=== PATIENT | female | born 1995 | race Caucasian/White ===

== ENCOUNTER → 2020-04-19 15:30 | Outpatient (BNVA) | payer MEDICAID, SELFPAY | PROVIDERS: Family Provider Nurse Practitioner Family; PCP Nurse Practitioner Family; Visit Provider Nurse Practitioner Family | DX: R04.0 Epistaxis (principal); R03.0 Elevated blood-pressure reading, without diagnosis of hypertension | CPT/HCPCS: 80053; 81000; 85025; 87491; 87591; 87661 ==

== ENCOUNTER 2020-07-11 20:55 | Emergency (ER) | payer MEDICAID, SELFPAY ==
[2020-07-11] VITALS (14 sets, daily range): BP systolic 118–139; BP diastolic 70–82; PULSE 60–105; RESP 18–28; TEMP 36.5; O2SAT 97–100; BMI 46.5
--- NOTE | 2020-07-11 | US_ITS ---
Procedure was edited; report was originally signed on 07/12/20818 WS: [id number] EARLY OBSTETRICAL ULTRASOUND (<14 WEEKS). HISTORY: lower abd pain COMPARISON: None available. Quality of this examination is significantly limited by lack of bladder distention and no transvaginal imaging. Single intrauterine gestational sac is identified. Cardiac activity at 126 BPM. [place]-rump length measures 0.8 cm which corresponds to a gestation of 6w5d. Normal-appearing yolk sac and amnion demonstrated. No subchorionic hemorrhage. Neither ovary is definitely identified. No free fluid. [facility] [id number] IMPRESSION: 1. Single intrauterine gestation of 6 weeks 5 days with an EDC of 02/04/2021. 2. This is an extremely limited ultrasound of the gravid uterus. Recommend fol low-up transvaginal imaging.
--- NOTE | 2020-07-11 21:02 | ECG_ITS ---
[facility] Test Date: 2020-07-11 Pat Name: Brit Gunderson Department: Room: Gender: Female Ab Initio Etl Developer: : 1995 Requested By: Darrell Young Order Number: [id number] Prudence MD: JOSE ELIAS HUNT Measurements Intervals [place] Rate: 91 P: 39 FL: 154 QRS: 24 QRSD: 89 T: 33 QT: 347 QTc: 428 Interpretive Statements SINUS RHYTHM Compared to ECG 04/28/2019 18:17:54 Sinus tachycardia no longer present Electronically Signed On 07-12-2020 18:39:15 RIG SITE ENGINEER by JOSE ELIAS HUNT [id number] f
--- NOTE | 2020-07-11 21:13 | XR_ITS ---
WS: [id number] XR chest 1V portable [id number] REASON FOR EXAM: CP, FINDINGS: The chest is unchanged compared to 04/28/2019. The heart and mediastinum are within normal limits. No active pulmonary parenchymal or pleural disease. Bony thorax is intact. XR/XR chest 1V portable [id number] IMPRESSION: No acute abnormality.
--- NOTE | 2020-07-11 23:30 | US_ITS ---
WS: [id number] EARLY OBSTETRICAL ULTRASOUND (<14 WEEKS). HISTORY: lower abd pain COMPARISON: None available. Quality of this examination is significantly limited by lack of bladder distention and no transvagina l imaging. Single intrauterine gestational sac is identified. Cardiac activity at 126 BPM. [place]-rump length truong sures 0.8 cm which corresponds to a gestation of 6w5d. Normal-appearing yolk sac and amnion demonstra shayne. No subchorionic hemorrhage. Neither ovary is definitely identified. No free fluid.
[2020-07-11 23:31] LABS: Basophils % 0.3 %; Eosinophils # 0.5 10^3/uL (0.0-0.8); Eosinophils % 3.8 %; Hematocrit 40.5 % (37.0-47.0); Hemoglobin 13.3 g/dL (11.5-15.3); Lymphocytes # 2.4 10^3/uL (0.8-4.8); Lymphocytes % 19.7 %; Mean Corpuscular HGB Conc 32.8 g/dL (30.0-36.0); Mean Corpuscular Hemoglobin 26.9 pg (28.0-34.0); Mean Platelet Volume 12.3 fL (7.4-10.4); Monocytes # 0.8 10^3/uL (0.2-0.9); Monocytes % 6.3 %; Neutrophils # 8.41 10^3/uL (1.8-7.7); Neutrophils % 69.7 %; Nucleated Red Blood Cells % 0 %; Platelet Count 164 10^3/cmm (130-400); Red Blood Count 4.94 10^6/uL (4.1-5.3); White Blood Count 12.1 10^3/uL (4.0-10.0)
[2020-07-11 23:48] LABS: Troponin(5th) Baseline 6 ng/L (0-10)
[2020-07-11 23:58] LABS: Alanine Aminotransferase 8 U/L (0-33); Albumin Level 4.1 g/dL (3.5-5.2); Alkaline Phosphatase 72 IU/L (35-105); Anion Gap 16.8 (5-19); Aspartate Amino Transferase 11 U/L (0-32); Blood Urea Nitrogen 14 mg/dL (6-20); Calcium 9.2 mg/dL (8.5-10.5); Carbon Dioxide 22 mmol/L (22-29); Chloride 104 mmol/L (98-107); Globulin 2.7 g/dL (1.3-4.6); Glomerular Filtration Rate 103.7 mL/min (90-130); Glucose 107 mg/dL (65-115); NT Pro B Type Natriuretic Pept 51 pg/mL (0-125); Osmolality Calculated 289 mOsm/kg (285-295); Potassium 3.8 mmol/L (3.5-5.1); Sodium 139 mmol/L (136-145); Total Bilirubin 0.4 mg/dL (0.15-1.2); Total Protein 6.8 g/dL (6.6-8.7)
[2020-07-12] VITALS: BP 127/81; PULSE 94; RESP 18; O2SAT 96
--- NOTE | 2020-07-12 00:11 | PC.NURSE ---
Ultrasound at bedside
--- NOTE | 2020-07-12 00:17 | W.ED.CHESTPA ---
HPI - Chest Pain General: Chief Complaint: Chest Pain Stated Complaint: cp, dizziness, headache, 6 weeks preg Time Seen by Provider: 07/11/20 21:13 Source: patient Mode of arrival: ambulatory Limitations: no limitations History of Present Illness: HPI narrative: Patient was laying in bed when she developed chest pain. Chest pain is nonradiating. She had associated abdominal pain in her lower abdomen, dizziness, headache. The patient is about 6 weeks and she is currently on antibiotics for UTI. MD complaint: chest pain Onset (ago): hour(s) (1) Timing of current episode: constant Prior episodes: No Onset: during rest Pain location: left chest Pain radiation: none Severity: moderate Quality: dull Relieving factors: nothing Exacerbating factors: nothing Associated symptoms: Reports abdominal pain; Deny diaphoresis, dyspnea, fever(s), leg edema, nausea, palpitations, sense of impending doom, syncope or vomiting Treatment prior to arrival: none Review of Systems General: Reports: 10 or more systems reviewed and unremarkable except in HPI and below Const: Denies: fever(s) or diaphoresis Eyes: Denies: change in vision or blurry vision ENMT: Denies: throat pain, enlarged tonsils, odynophagia, hoarseness, mouth pain or swelling of lips/tongue Card: Denies: palpitations or syncope Resp: Denies: dyspnea GI: Reports: abdominal pain; Denies: nausea or vomiting : Denies: flank pain, difficulty voiding, dysuria, urinary frequency, urinary urgency or urinary hesitancy Musc: Denies: neck pain, back pain or extremity swelling Skin/Breast: Denies: rash, pruritus or erythema Neuro: Denies: headache(s), numbness in extremities or weakness in extremities Endo: Denies: polyuria, polydipsia or tired all the time PFSH ED PFSH: Surgical History Hx of right knee surgery Family History Father Diabetes Hypertension Mother Hypertension Social History Smoking and tobacco status: former smoker Second hand smoke exposure: Yes Smoking risk assessment/counseling performed?: No Alcohol intake: never Desire information about alcohol rehabilitation?: No Counseling given: No Desire information about substance/drug rehabilitation?: No Counseling given: No Adopted: No Caregiver/support person: No Lives independently: Yes Household members: spouse Housing: House Marital status: Number of children: 0 Highest education level completed: 8th Grade service: No History of recent travel: No Physical Exam Const: COMMON NORMALS: no acute distress, average body habitus, patient oriented x3, no limitations, healthy appearing, alert and well nourished HENMT: COMMON NORMALS: normocephalic, atraumatic and moist oral mucous membranes HEAD & SCALP: normocephalic and atraumatic Neck/C-Spine: COMMON NORMALS: no meningeal signs and no JVD Chest: COMMONS NORMALS: normal inspection of the chest and normal palpation of entire chest wall Resp: COMMON NORMALS: normal respiratory effort, No retractions, No use of accessory muscles, clear to auscultation bilaterally and percussion normal AUSCULTATION: clear to auscultation bilaterally PERCUSSION: percussion normal Cardio: COMMON NORMALS: no JVD, regular rate, regular rhythm, S1 normal heart sound present, S2 normal heart sound present, No gallops present (Cardio), No clicks present (Cardio), No murmurs present (Cardio), No rub (Cardio) and Peripheral pulses 2+ throughout RATE: regular rate RHYTHM: regular rhythm HEART SOUNDS: S1 normal heart sound present and S2 normal heart sound present PERIPHERAL PULSES: Peripheral pulses 2+ throughout GI: COMMON NORMALS: Normal to inspection, nondistended, normoactive bowel sounds present, Soft to palpation, non-tender, No hepatosplenomegaly present, no masses and no bruits PALPATION: Yes Soft to palpation and Yes No hepatosplenomegaly present Extremity: COMMON NORMALS: normal to inspection, full ROM, capillary refill normal, no calf tenderness and no pedal edema Neuro: COMMON NORMALS: patient oriented x3 SENSORIUM/ORIENTATION: Yes alert MENINGEAL SIGNS: Yes no meningeal signs Skin: COMMON NORMALS: no rashes or lesions noted, no wounds, turgor normal, no jaundice, no petechiae and no mottling GENERAL SKIN EXAM: no rashes or lesions noted and turgor normal Course Reevaluation(s): Reevaluation #1: Discussed her lab and imaging findings with her. Negative for acute findings. Ultrasound shows a 6-week and that appears healthy with no complications. Heart score is one which means she has a 1.7% risk of a MACE in the next 6 weeks. She will be discharged home with no new orders. She voiced understanding and is in agreement with the plan Time: 00:18 Vital Signs: Vital signs: Vital Signs Temperature 97.7 F 07/11/20 21:07 Pulse Rate 18 L 07/12/20 00:24 Respiratory Rate 68 H 07/12/20 00:24 Blood Pressure 120/74 07/12/20 00:24 Pulse Oximetry 99 07/12/20 00:24 MDM - Chest Pain MDM Narrative: Medical decision making narrative: 24-year-old morbidly obese female who is 6 weeks and presents with chest pain. Chest pain is likely to be noncardiac in origin. Evaluation otherwise was unremarkable and she is discharged home with the new orders. Medical Records: Attestation: I reviewed the patient's medical records. Lab Data: Attestation: I reviewed the patient's lab results. Labs: Lab Results 07/11/20 07/11/20 07/11/20 Range/Units 22:02 22:02 22:02 WBC 12.1 H (4.0-10.0) 10^3/ uL RBC 4.94 (4.1-5.3) 10^6/u L Hgb 13.3 (11.5-15.3) g/dL Hct 40.5 (37.0-47.0) % MCV 82.0 (81-99) fL MCH 26.9 L (28.0-34.0) pg MCHC 32.8 (30.0-36.0) g/dL RDW 13.0 (12.1-15.1) % Plt Count 164 (130-400) 10^3/c mm MPV 12.3 H (7.4-10.4) fL Neut % (Auto) 69.7 % Lymph % (Auto) 19.7 % [place] % (Auto) 6.3 % Eos % (Auto) 3.8 % Baso % (Auto) 0.3 % Neut # (Auto) 8.41 H (1.8-7.7) 10^3/u L Lymph # (Auto) 2.4 (0.8-4.8) 10^3/u L [place] # (Auto) 0.8 (0.2-0.9) 10^3/u L Eos # (Auto) 0.5 (0.0-0.8) 10^3/u L Baso # (Auto) 0.0 (0.0-0.1) 10^3/u L Nucleated RBC % (a uto) 0 % Nucleated RBCs # 0.0 /100WBC Sodium 139 (136-145) mmol/L Potassium 3.8 (3.5-5.1) mmol/L Chloride 104 (98-107) mmol/L Carbon Dioxide 22 (22-29) mmol/L Anion Gap 16.8 (5-19) BUN 14 (6-20) mg/dL Creatinine 0.7 (0.5-0.9) mg/dL GFR Calculation 103.7 (90-130) mL/min Glucose 107 (65-115) mg/dL Calculated Osmolal ity 289 (285-295) mOsm/k g Calcium 9.2 (8.5-10.5) mg/dL Total Bilirubin 0.4 (0.15-1.2) mg/dL AST 11 (0-32) U/L ALT 8 (0-33) U/L Alkaline Phosphata se 72 (35-105) IU/L Troponin T Baselin e 6 (0-10) ng/L NT-Pro-B Natriuret Pep 51 (0-125) pg/mL Total Protein 6.8 (6.6-8.7) g/dL Albumin 4.1 (3.5-5.2) g/dL Globulin 2.7 (1.3-4.6) g/dL Imaging Data^: CXR: Attestation: I personally reviewed and interpreted this imaging study as follows: My impression: No acute findings EKG Data^: EKG 1: Attestation: I personally reviewed and interpreted this EKG as follows: EKG interpretation date: 07/11/20 EKG interpretation time: 21:21 Prior EKG tracings: not available for review Interpretation: Normal sinus rhythm. Heart rate [address] changes. Normal axis. Next Discharge Plan Discharge Patient Disposition: Home Clinical Impression: Chest pain, non-cardiac, Early stage of Condition: Stable Prescriptions: Continued sodium chloride [Saline Nasal Mist] 0.65 % aerosol,spray 2 spray INTRANASAL QID PRN (Reason: dry nasal passages) 30 Days Qty: 60 RF: 2 Discontinued ibuprofen [Advil] 200 mg tablet 200 mg PO Q6H PRNRF: 0 Discharge Orders: Discharge ED (Routine); Ordered 07/12/20 Ordered By: Pineda Bass Referrals: Flora Hui FNP-C [Primary Care Provider] - 1-3 days Discharge Diet: Usual diet Discharge Activity: Resume usual activity Patient Instructions: Abdominal Pain in (ED), Noncardiac Chest Pain (ED) Activity Restrictions/Additional Instructions: Return for any new or worsening symptoms. Follow-up with your primary care provider within 3 days. Follow-up with your timber selector as soon as you can get in. Coding Level of Care Code ED Video Recorder Mechanic for Korey Escobedo
[2020-07-12 00:24] VITALS: BP 120/74; PULSE 18; RESP 68; O2SAT 99
== END 2020-07-12 00:25 | disposition home or self-care (01) ==
PROVIDERS: Emergency Provider Family Medicine; PCP Nurse Practitioner Family
DX: O26.891 Other specified pregnancy related conditions, first trimester (principal); R07.89 Other chest pain; Z3A.01 Less than 8 weeks gestation of pregnancy; Z77.22 Contact with and (suspected) exposure to environmental tobacco smoke (acute) (chronic)
CPT/HCPCS: 12345; 71045; 76801; 76815; 80053; 83880; 84484; 85025; 93005; 99282; 99283

== ENCOUNTER 2020-07-26 15:41 | Emergency (ER) | payer MEDICAID, SELFPAY ==
[2020-07-26 16:26] VITALS: BP 126/79; PULSE 90; RESP 14; TEMP 36.5; O2SAT 99; BMI 44.9
--- NOTE | 2020-07-26 17:05 | XRR_ITS ---
PROCEDURE INFORMATION: Exam: XR Chest, 1 View Exam date and time: 07/26/2020 5:12 PM Age: 24 years old Clinical indication: Patient HX: Chest pain, lower abd pain x 2 days; Additional info: Cp TECHNIQUE: Imaging protocol: XR of the chest Views: 1 view. COMPARISON: CR XR chest 1V portable [id number] 07/11/2020 9:38 PM FINDINGS: Lungs: Unremarkable. No consolidation. Pleural space: Unremarkable. No pleural effusion. No pneumothorax. Heart/Mediastinum: Unremarkable. No cardiomegaly. Bones/joints: Unremarkable. XR/XR chest 1V portable [id number] IMPRESSION: No acute findings.
--- NOTE | 2020-07-26 17:06 | ECG_ITS ---
[facility] Test Date: 2020-07-26 Pat Name: Brit Gunderson Department: Room: Gender: Female Under Presser: : 1995 Requested By: Jose D Reyes Order Number: [id number] Prudence MD: Teagan Lion M.D. Measurements Intervals [place] Rate: 89 P: 11 KS: 147 QRS: 23 QRSD: 91 T: 25 QT: 360 QTc: 439 Interpretive Statements SINUS RHYTHM Compared to ECG 07/11/2020 21:21:58 No significant changes Electronically Signed On 07-26-2020 20:08:31 COAL INSPECTOR by Teagan Lion M.D. [id number]
[2020-07-26 20:58] VITALS: BP 149/90; PULSE 90; RESP 16; O2SAT 100
[2020-07-26] MEDS: diphenhydrAMINE 50 mg/mL SDV 1mL IVP (21:08)
[2020-07-26 21:09] LABS: Basophils % 0.4 %; Eosinophils # 0.4 10^3/uL (0.0-0.8); Eosinophils % 3.4 %; Hematocrit 40.4 % (37.0-47.0); Hemoglobin 13.6 g/dL (11.5-15.3); Lymphocytes # 2.3 10^3/uL (0.8-4.8); Lymphocytes % 22.5 %; Mean Corpuscular HGB Conc 33.7 g/dL (30.0-36.0); Mean Corpuscular Hemoglobin 27.7 pg (28.0-34.0); Mean Corpuscular Volume 82.3 fL (81-99); Monocytes # 0.5 10^3/uL (0.2-0.9); Neutrophils # 6.95 10^3/uL (1.8-7.7); Neutrophils % 68.5 %; Nucleated Red Blood Cells % 0 %; Platelet Count 340 10^3/cmm (130-400); Red Blood Count 4.91 10^6/uL (4.1-5.3); Red Cell Distribution Width 12.7 % (12.1-15.1); White Blood Count 10.2 10^3/uL (4.0-10.0)
[2020-07-26] MEDS: metoclopramide 5 mg/mL SDV 2 mL 10 MG IVP (21:09)
--- NOTE | 2020-07-26 21:16 | ED_ITS ---
HPI - General Adult General: Chief complaint: General Medical Stated complaint: 8 WKS , CP Time Seen by Provider: 07/26/20 20:40 Source: patient Mode of arrival: ambulatory Limitations: no limitations History of Present Illness: HPI narrative: 24-year-old female who is currently 8 weeks states that she has been having some chest pain along with abdominal pain nausea vomiting over the last 3 to 4 days. She states this is her first . States her pain is a 3 out of 10 and denies any fever. She denies any dysuria. She states she does have pain down her pelvis as well but denies any vaginal discharge or bleeding. Denies any worsening improving factors. Associated symptoms: Deny chest pain, dyspnea, headache(s) or rash Review of Systems Const: Denies: fever(s), chills, body aches or change in appetite Eyes: Denies: blurry vision or eye discomfort ENMT: Denies: throat pain or dental pain Card: Denies: chest pain Resp: Denies: dyspnea GI: Reports: abdominal pain : Denies: dysuria Musc: Denies: neck pain or back pain Skin/Breast: Denies: rash Neuro: Denies: headache(s) Psych: Denies: depression Atul/Lymph: Denies: easy bruising All/Imm: Denies: urticaria PFSH ED PFSH: Surgical History Hx of right knee surgery Family History Father Diabetes Hypertension Mother Hypertension Social History Smoking and tobacco status: former smoker Second hand smoke exposure: Yes Smoking risk assessment/counseling performed?: No Alcohol intake: never Desire information about alcohol rehabilitation?: No Counseling given: No Desire information about substance/drug rehabilitation?: No Counseling given: No Adopted: No Caregiver/support person: No Lives independently: Yes Household members: spouse Housing: House Marital status: Number of children: 0 Highest education level completed: 8th Grade service: No History of recent travel: No Female Reproductive History: Date of last menstrual period: 05/24/20 Physical Exam Const: COMMON NORMALS: no acute distress, patient oriented x3 and healthy appearing HENMT: COMMON NORMALS: normocephalic and atraumatic HEAD & SCALP: normocephalic and atraumatic Eye: COMMON NORMALS: Equal, round and reactive pupils present and EOMs intact bilaterally PUPIL: Yes Equal, round and reactive pupils present Neck/C-Spine: COMMON NORMALS: full ROM and supple Chest: COMMONS NORMALS: normal inspection of the chest and normal palpation of entire chest wall Resp: COMMON NORMALS: normal respiratory effort, No retractions, No use of accessory muscles and clear to auscultation bilaterally AUSCULTATION: clear to auscultation bilaterally Cardio: COMMON NORMALS: regular rate, regular rhythm and No murmurs present (Cardio) RATE: regular rate RHYTHM: regular rhythm GI: COMMON NORMALS: Normal to inspection, nondistended, normoactive bowel sounds present and no masses OTHER: No tenderness over McBurney's Extremity: COMMON NORMALS: normal to inspection and full ROM Neuro: COMMON NORMALS: patient oriented x3, moves all extremities and no focal motor deficits Psych: COMMON NORMALS: mental status grossly normal, Normal thought process present and cooperative THOUGHT PROCESS: Normal thought process present Skin: COMMON NORMALS: no rashes or lesions noted and no wounds GENERAL SKIN EXAM: no rashes or lesions noted Course Vital Signs: Vital signs: Vital Signs Temperature 97.7 F 07/26/20 16:26 Pulse Rate 80 07/26/20 21:48 Respiratory Rate 16 07/26/20 20:58 Blood Pressure 135/91 07/26/20 21:48 Pulse Oximetry 100 07/26/20 21:48 MDM - General Adult MDM Narrative: Medical decision making narrative: Patient presents here with abdominal pain and likely from a acute cystitis. Patient's abdominal exam here is benign and she has no signs of appendicitis. Her white count here is normal as well. She feels improved after the Reglan. She is stable for discharge and she is to follow-up with OB and return if worsening. Bedside ultrasound showed an IUP consistent with dates with heart rate of 152. Lab Data: Labs: Lab Results 07/26/20 07/26/20 07/26/20 Range/Units 20:20 20:50 20:50 WBC 10.2 H (4.0-10.0) 10^3/ uL RBC 4.91 (4.1-5.3) 10^6/u L Hgb 13.6 (11.5-15.3) g/dL Hct 40.4 (37.0-47.0) % MCV 82.3 (81-99) fL MCH 27.7 L (28.0-34.0) pg MCHC 33.7 (30.0-36.0) g/dL RDW 12.7 (12.1-15.1) % Plt Count 340 (130-400) 10^3/c mm MPV 11.0 H (7.4-10.4) fL Neut % (Auto) 68.5 % Lymph % (Auto) 22.5 % [place] % (Auto) 5.0 % Eos % (Auto) 3.4 % Baso % (Auto) 0.4 % Neut # (Auto) 6.95 (1.8-7.7) 10^3/u L Lymph # (Auto) 2.3 (0.8-4.8) 10^3/u L [place] # (Auto) 0.5 (0.2-0.9) 10^3/u L Eos # (Auto) 0.4 (0.0-0.8) 10^3/u L Baso # (Auto) 0.0 (0.0-0.1) 10^3/u L Nucleated RBC % (a uto) 0 % Nucleated RBCs # 0.0 /100WBC Sodium 137 (136-145) mmol/L Potassium 3.2 L (3.5-5.1) mmol/L Chloride 102 (98-107) mmol/L Carbon Dioxide 23 (22-29) mmol/L Anion Gap 15.2 (5-19) BUN 5 L (6-20) mg/dL Creatinine 0.4 L (0.5-0.9) mg/dL GFR Calculation 197.8 H (90-130) mL/min Glucose 97 (65-115) mg/dL Calculated Osmolal ity 281 L (285-295) mOsm/k g Calcium 9.8 (8.5-10.5) mg/dL Total Bilirubin 0.4 (0.15-1.2) mg/dL AST 12 (0-32) U/L ALT 12 (0-33) U/L Alkaline Phosphata se 75 (35-105) IU/L Total Protein 7.7 (6.6-8.7) g/dL Albumin 4.3 (3.5-5.2) g/dL Globulin 3.4 (1.3-4.6) g/dL Lipase 26 (13-60) U/L Urine Color Yellow (Yellow) Urine Appearance Sl hazy (CLEAR) Urine pH 6 (5-7) Ur Specific Gravit y 1.020 (1.005-1.030) Urine Protein Neg (Negative) Urine Glucose (UA) Norm (Normal) Urine Ketones Negative (Negative) Urine Blood Neg (Negative) Urine Nitrate Negative (Negative) Urine Bilirubin Neg (Negative) Urine Urobilinogen Norm (Negative) mg/dL Ur Leukocyte Karissa ase Trace H (Negative) Urine RBC 0-4 H (0-2) /hpf Urine WBC 10-15 H (0-5) /hpf Ur Squamous Epith Cells 0-4 H (0-5) /hpf Amorphous Sediment Not Reportable Urine Bacteria 1+ H (NONE) /hpf Discharge Plan Discharge Patient Disposition: Home Clinical Impression: Abdominal pain affecting Acute cystitis Qualifiers: Hematuria presence: without hematuria Qualified Code(s): N30.00 - Acute cystitis without hematuria Condition: Stable Prescriptions: New Keflex 500 mg capsule 500 mg PO Q6H 7 Days Qty: 28 RF: 0 Reglan 10 mg tablet 10 mg PO Q6H PRN (Reason: nausea and vomiting) Qty: 20 RF: 0 No Action Zofran 4 mg Tablet 4 mg PO Q6H PRN (Reason: Nausea And Vomiting) RF: 0 Tylenol Arthritis 650 mg Tablet Extended Release 650 mg PO PRN RF: 0 Vitamin Plus Low Iron 27 mg iron- 1 mg tablet 1 tab PO DAILY@21 RF: 0 Discharge Orders: Discharge ED (Routine); Ordered 07/26/20 Ordered By: Jose D Reyes Referrals: [facility] [address], [Primary Care Provider] - Discharge Diet: Advance as tolerated Discharge Activity: Resume usual activity Patient Instructions: Urinary Tract Infection in Women (ED), Abdominal Pain (ED) Coding Level of Care Code ED Players Assistant for Chg Fwd Exam Comprehensive
[2020-07-26 21:24] LABS: Alanine Aminotransferase 12 U/L (0-33); Albumin Level 4.3 g/dL (3.5-5.2); Alkaline Phosphatase 75 IU/L (35-105); Anion Gap 15.2 (5-19); Aspartate Amino Transferase 12 U/L (0-32); Blood Urea Nitrogen 5 mg/dL (6-20); Calcium 9.8 mg/dL (8.5-10.5); Carbon Dioxide 23 mmol/L (22-29); Chloride 102 mmol/L (98-107); Globulin 3.4 g/dL (1.3-4.6); Glomerular Filtration Rate 197.8 mL/min (90-130); Glucose 97 mg/dL (65-115); Lipase 26 U/L (13-60); Osmolality Calculated 281 mOsm/kg (285-295); Potassium 3.2 mmol/L (3.5-5.1); Sodium 137 mmol/L (136-145); Total Bilirubin 0.4 mg/dL (0.15-1.2); Total Protein 7.7 g/dL (6.6-8.7)
[2020-07-26 21:48] VITALS: BP 135/91; PULSE 80; O2SAT 100
[2020-07-26 21:49] LABS: Add Urine Microscopic? YES; Bacteria Urine 1+ /hpf; Bilirubin Urine Neg (Negative); Blood Urine Neg (Negative); Glucose Urine UA Norm (Normal); Ketones Urine Negative (Negative); Leukocyte Esterase Urine Trace (Negative); Nitrate Urine Negative (Negative); Protein Urine Neg (Negative); RBC Urine 0-4 /hpf (0-2); Squamous Epithelial Cell Urine 0-4 /hpf (0-5); Urine Appearance SL Hazy (CLEAR); Urine Color Yellow (Yellow); Urobilinogen Urine Norm (Negative); pH Urine 6 (5-7)
[2020-07-26 22:04] VITALS: BP 130/54; PULSE 78; RESP 18; O2SAT 96
== END 2020-07-26 22:07 | disposition home or self-care (01) ==
PROVIDERS: Emergency Provider Emergency Medicine
DX: O23.11 Infections of bladder in pregnancy, first trimester (principal); Z3A.08 8 weeks gestation of pregnancy; Z87.891 Personal history of nicotine dependence
CPT/HCPCS: 12345; 71045; 80053; 81001; 83690; 85025; 93005; 96374; 96375; 99283; J1200; J2765

== ENCOUNTER 2020-10-24 15:04 | Emergency (ER) | payer BC, MEDICAID, SELFPAY ==
[2020-10-24 15:16] VITALS: BP 158/83; PULSE 102; RESP 18; TEMP 36.4; O2SAT 98; BMI 42.7
--- NOTE | 2020-10-24 16:15 | ECG_ITS ---
[facility] Test Date: 2020-10-24 Pat Name: Brit Gunderson Department: Room: Gender: Female Stave Cutting Supervisor: : 1995 Requested By: Katherin Rainey Order Number: [id number] Prudence MD: Teagan Lion M.D. Measurements Intervals [place] Rate: 114 P: 11 KS: 127 QRS: 16 QRSD: 88 T: 14 QT: 329 QTc: 454 Interpretive Statements SINUS TACHYCARDIA MINIMAL VOLTAGE CRITERIA FOR LVH, CONSIDER NORMAL VARIANT [MEETS CRITERIA IN ONE OF: R(aVL), S(V1), R(V5), R(V5/V6)+S(V1)] Compared to ECG 07/26/2020 18:11:43 Sinus rhythm no longer present Electronically Signed On 10-24-2020 20:16:02 CDT by Teagan Lion M.D. [id number]
[2020-10-24 16:39] VITALS: BP 122/77; PULSE 103; RESP 18; O2SAT 99
[2020-10-24 18:07] VITALS: BP 133/75; PULSE 99; RESP 18; O2SAT 98
[2020-10-24] MEDS: acetaminophen 325 mg Tablet 650 MG PO (18:07)
[2020-10-24] MEDS: sodium chloride 0.9% 1,000 ML 999 ML IV (18:07)
[2020-10-24 18:22] LABS: Basophils % 0.2 %; Eosinophils # 0.2 10^3/uL (0.0-0.8); Hematocrit 46.7 % (37.0-47.0); Hemoglobin 15.6 g/dL (11.5-15.3); Lymphocytes % 12.7 %; Mean Corpuscular HGB Conc 33.4 g/dL (30.0-36.0); Mean Corpuscular Hemoglobin 27.4 pg (28.0-34.0); Mean Corpuscular Volume 82.1 fL (81-99); Mean Platelet Volume 11.9 fL (7.4-10.4); Monocytes # 0.4 10^3/uL (0.2-0.9); Monocytes % 4.9 %; Neutrophils # 6.43 10^3/uL (1.8-7.7); Nucleated Red Blood Cells % 0 %; Platelet Count 211 10^3/cmm (130-400); Red Blood Count 5.69 10^6/uL (4.1-5.3)
--- NOTE | 2020-10-24 18:27 | PC.NURSE ---
unable to get heart tone by doppler , awared
[2020-10-24 18:38] LABS: Rapid Strep A Test Negative (Negative)
[2020-10-24 18:39] LABS: Add Urine Microscopic? NO
[2020-10-24 18:47] LABS: Lactate (Lactic Acid level) 1.3 mmol/L (0.5-2.2)
[2020-10-24 18:48] LABS: Alanine Aminotransferase 9 U/L (0-33); Albumin Level 3.8 g/dL (3.5-5.2); Alkaline Phosphatase 71 IU/L (35-105); Anion Gap 19.3 (5-19); Aspartate Amino Transferase 8 U/L (0-32); Blood Urea Nitrogen 3 mg/dL (6-20); Carbon Dioxide 21 mmol/L (22-29); Chloride 100 mmol/L (98-107); Globulin 3.5 g/dL (1.3-4.6); Glomerular Filtration Rate 275.7 mL/min (90-130); Glucose 86 mg/dL (65-115); Osmolality Calculated 280 mOsm/kg (285-295); Potassium 3.3 mmol/L (3.5-5.1); Sodium 137 mmol/L (136-145); Total Bilirubin 0.5 mg/dL (0.15-1.2); Total Protein 7.3 g/dL (6.6-8.7)
[2020-10-24 18:53] LABS: Bilirubin Urine Neg (Negative); Blood Urine Neg (Negative); Glucose Urine UA Norm (Normal); Ketones Urine Negative (Negative); Leukocyte Esterase Urine Negative (Negative); Nitrate Urine Negative (Negative); Protein Urine Neg (Negative); Specific Gravity, Urine 1.015 (1.005-1.030); Urine Appearance Clear (CLEAR); Urine Color Yellow (Yellow); Urobilinogen Urine Norm (Negative); pH Urine 6 (5-7)
[2020-10-24 18:54] LABS: SARS Covid-2 Antigen Negative (Negative)
[2020-10-24 20:04] VITALS: BP 118/64; PULSE 92; RESP 14; O2SAT 100
--- NOTE | 2020-10-24 20:23 | ED_ITS ---
HPI - URI/Sore Throat General: Chief Complaint: Upper Respiratory Infection Stated Complaint: HEAD CONGESTION, SORE THROAT Time Seen by Provider: 10/24/20 16:39 History of Present Illness: HPI Narrative: The patient is a 24-year-old G1 at approximately 21 weeks gestational age who comes to the ER complaining of sore throat and head congestion. She says she has felt this way for the past 2 days and called her OB who told her to take Benadryl. Her symptoms were no better and she was driving a family member to the ER so she checked in. Her heart rate was 102 on arrival and she was given a liter of fluids and it is now reduced. Denies fever, chills, shortness of breath, chest pain, cough, abdominal pain, cramping, vaginal discharge. She appreciates movement. Denies contractions and discharge. MD elicited complaint: sore throat and nasal congestion Consistency: constant Severity: mild Able to tolerate fluids by mouth: Yes Exacerbating factors: nothing Relieving factors: nothing Context: sick contacts Associated symptoms: Reports no associated symptoms; Deny abdominal pain, chest pain, diarrhea, ear or mastoid pain, headache(s) or nasal congestion Review of Systems General: Reports: 10 or more systems reviewed and unremarkable except in HPI and below Const: Denies: fatigue Eyes: Denies: change in vision, blurry vision or eye redness ENMT: Reports: throat pain; Denies: swelling of lips/tongue, ear or mastoid pain or nasal congestion Card: Denies: chest pain, palpitations, irregular heart rhythm, edema, dyspnea on exertion or orthopnea Resp: Denies: dyspnea, productive cough or non-productive cough GI: Denies: abdominal pain, diarrhea or GI cramping : Denies: flank pain, difficulty voiding, urinary frequency or urinary urgency Musc: Denies: neck pain, back pain, extremity pain, joint pain, joint redness, limited range of motion or muscle weakness Skin/Breast: Denies: rash, pruritus, erythema, skin pain or skin tenderness Neuro: Denies: headache(s), numbness in extremities, weakness in extremities, sensory changes, difficulty walking, dizziness, confusion or Slurred speech present Psych: Denies: anxiety or depression Endo: Denies: polyuria All/Imm: Denies: urticaria, throat swelling or tongue swelling PFSH ED PFSH: Surgical History Hx of right knee surgery Family History Father Diabetes Hypertension Mother Hypertension Social History Smoking and tobacco status: former smoker Second hand smoke exposure: Yes Smoking risk assessment/counseling performed?: No Alcohol intake: never Desire information about alcohol rehabilitation?: No Counseling given: No Desire information about substance/drug rehabilitation?: No Counseling given: No Adopted: No Caregiver/support person: No Lives independently: Yes Household members: spouse Housing: House Marital status: Number of children: 0 Highest education level completed: 8th Grade service: No History of recent travel: No Female Reproductive History: Date of last menstrual period: 05/24/20 Physical Exam Const: COMMON NORMALS: no acute distress, average body habitus, patient oriented x3, no limitations, healthy appearing, alert and well nourished GENERAL APPEARANCE: cooperative, comfortable, well kempt and well developed ORIENTATION/CONSCIOUSNESS: Yes awake, Yes oriented to person, Yes oriented to place and Yes oriented to time HENMT: COMMON NORMALS: normocephalic, external ears normal and Normal external nose present HEAD & SCALP: normal to inspection and normocephalic NOSE: Normal external nose present EXTERNAL EAR: Yes external ears normal MOUTH: Normal oral and palatal mucosa present THROAT: posterior oropharynx normal Eye: COMMON NORMALS: Equal, round and reactive pupils present and EOMs intact bilaterally GENERAL EYE: appearance normal, both eyes and all related structures PUPIL: Yes Equal, round and reactive pupils present Neck/C-Spine: COMMON NORMALS: full ROM, no lymphadenopathy, no meningeal signs and no JVD GENERAL: Yes normal visual inspection Lymph: LYMPHATIC: no lymphadenopathy noted Chest: COMMONS NORMALS: normal inspection of the chest and normal palpation of entire chest wall Resp: COMMON NORMALS: normal respiratory effort, No retractions, No use of accessory muscles, clear to auscultation bilaterally and percussion normal EFFORT & INSPECTION: Yes able to speak in complete sentences AUSCULTATION: clear to auscultation bilaterally PERCUSSION: percussion normal Cardio: COMMON NORMALS: no JVD, regular rate, regular rhythm, S1 normal heart sound present, S2 normal heart sound present and Peripheral pulses 2+ throughout RATE: regular rate RHYTHM: regular rhythm HEART SOUNDS: S1 normal heart sound present and S2 normal heart sound present PERIPHERAL PULSES: Peripheral pulses 2+ throughout GI: COMMON NORMALS: Normal to inspection, nondistended, normoactive bowel sounds present, Soft to palpation, non-tender and no masses INSPECTION: Yes normal to inspection PALPATION: Yes Soft to palpation OTHER: Uterus appropriate for gestational age. Ultrasound heart tones in the 150s and stable. : COMMON NORMALS: Yes no CVA tenderness BLADDER/KIDNEY EXAM: Yes no CVA tenderness Back/Pelvis: COMMON NORMALS: no CVA tenderness, thoracic and lumbar spine normal to inspection, no thoracic nor lumbar tenderness and thoraco-lumbar ROM normal Extremity: COMMON NORMALS: normal to inspection, full ROM, capillary refill normal, no joint enlargement and no pedal edema GENERAL: Yes normal exam exce pt as noted Neuro: COMMON NORMALS: patient oriented x3, CN's II-XII intact bilaterally, moves all extremities, no focal motor deficits, no sensory deficits noted and gait normal SENSORIUM/ORIENTATION: Yes alert, Yes oriented to person, Yes oriented to place and Yes oriented to time MENINGEAL SIGNS: Yes no meningeal signs Psych: COMMON NORMALS: mental status grossly normal, Normal thought process present, cooperative, normal affect and speech normal APPEARANCE: Yes well kempt ATTITUDE: Yes calm SPEECH: Yes normal speech THOUGHT PROCESS: Normal thought process present Skin: COMMON NORMALS: no rashes or lesions noted GENERAL SKIN EXAM: no rashes or lesions noted Course Vital Signs: Vital signs: Vital Signs Temperature 97.6 F 10/24/20 15:16 Pulse Rate 92 10/24/20 20:04 Respiratory Rate 14 10/24/20 20:04 Blood Pressure 118/64 10/24/20 20:04 Pulse Oximetry 100 10/24/20 20:04 MDM - URI/Sore Throat MDM Narrative: Medical decision making narrative: The patient comes in with upper respiratory symptoms of sore throat and congestion. She was given a liter of fluids with good reduction in her heart rate. Recommended drinking lots of fluids. Covid and strep are negative. Stable for discharge. Tylenol and follow-up with primary in a couple days. ER with worsening symptoms Lab Data: Labs: Lab Results 03/21/21 03/21/21 03/21/21 Range/Units 18:00 18:00 18:00 WBC 8.0 (4.0-10.0) 10^3/ uL RBC 5.69 H (4.1-5.3) 10^6/u L Hgb 15.6 H (11.5-15.3) g/dL Hct 46.7 (37.0-47.0) % MCV 82.1 (81-99) fL MCH 27.4 L (28.0-34.0) pg MCHC 33.4 (30.0-36.0) g/dL RDW 13.0 (12.1-15.1) % Plt Count 211 (130-400) 10^3/c mm MPV 11.9 H (7.4-10.4) fL Neut % (Auto) 80.0 % Lymph % (Auto) 12.7 % [place] % (Auto) 4.9 % Eos % (Auto) 2.0 % Baso % (Auto) 0.2 % Neut # (Auto) 6.43 (1.8-7.7) 10^3/u L Lymph # (Auto) 1.0 (0.8-4.8) 10^3/u L [place] # (Auto) 0.4 (0.2-0.9) 10^3/u L Eos # (Auto) 0.2 (0.0-0.8) 10^3/u L Baso # (Auto) 0.0 (0.0-0.1) 10^3/u L Nucleated RBC % (a uto) 0 % Nucleated RBCs # 0.0 /100WBC Sodium 137 (136-145) mmol/L Potassium 3.3 L (3.5-5.1) mmol/L Chloride 100 (98-107) mmol/L Carbon Dioxide 21 L (22-29) mmol/L Anion Gap 19.3 H (5-19) BUN 3 L (6-20) mg/dL Creatinine 0.3 L (0.5-0.9) mg/dL GFR Calculation 275.7 H (90-130) mL/min Glucose 86 (65-115) mg/dL Calculated Osmolal ity 280 L (285-295) mOsm/k g Lactate 1.3 (0.5-2.2) mmol/L Calcium 9.0 (8.5-10.5) mg/dL Total Bilirubin 0.5 (0.15-1.2) mg/dL AST 8 (0-32) U/L ALT 9 (0-33) U/L Alkaline Phosphata se 71 (35-105) IU/L Total Protein 7.3 (6.6-8.7) g/dL Albumin 3.8 (3.5-5.2) g/dL Globulin 3.5 (1.3-4.6) g/dL Urine Color (Yellow) Urine Appearance (CLEAR) Urine pH (5-7) Ur Specific Gravit y (1.005-1.030) Urine Protein (Negative) Urine Glucose (UA) (Normal) Urine Ketones (Negative) Urine Blood (Negative) Urine Nitrate (Negative) Urine Bilirubin (Negative) Urine Urobilinogen (Negative) mg/dL Ur Leukocyte Karissa ase (Negative) SARS-CoV-2 Ag (Rap id) (Negative) Group A Strep Rapi d (Negative) 10/24/20 10/24/20 10/24/20 Range/Units 18:00 18:00 18:16 WBC (4.0-10.0) 10^3/ uL RBC (4.1-5.3) 10^6/u L Hgb (11.5-15.3) g/dL Hct (37.0-47.0) % MCV (81-99) fL MCH (28.0-34.0) pg MCHC (30.0-36.0) g/dL RDW (12.1-15.1) % Plt Count (130-400) 10^3/c mm MPV (7.4-10.4) fL Neut % (Auto) % Lymph % (Auto) % [place] % (Auto) % Eos % (Auto) % Baso % (Auto) % Neut # (Auto) (1.8-7.7) 10^3/u L Lymph # (Auto) (0.8-4.8) 10^3/u L [place] # (Auto) (0.2-0.9) 10^3/u L Eos # (Auto) (0.0-0.8) 10^3/u L Baso # (Auto) (0.0-0.1) 10^3/u L Nucleated RBC % (a uto) % Nucleated RBCs # /100WBC Sodium (136-145) mmol/L Potassium (3.5-5.1) mmol/L Chloride (98-107) mmol/L Carbon Dioxide (22-29) mmol/L Anion Gap (5-19) BUN (6-20) mg/dL Creatinine (0.5-0.9) mg/dL GFR Calculation (90-130) mL/min Glucose (65-115) mg/dL Calculated Osmolal ity (285-295) mOsm/k g Lactate (0.5-2.2) mmol/L Calcium (8.5-10.5) mg/dL Total Bilirubin (0.15-1.2) mg/dL AST (0-32) U/L ALT (0-33) U/L Alkaline Phosphata se (35-105) IU/L Total Protein (6.6-8.7) g/dL Albumin (3.5-5.2) g/dL Globulin (1.3-4.6) g/dL Urine Color Yellow (Yellow) Urine Appearance Clear (CLEAR) Urine pH 6 (5-7) Ur Specific Gravit y 1.015 (1.005-1.030) Urine Protein Neg (Negative) Urine Glucose (UA) Norm (Normal) Urine Ketones Negative (Negative) Urine Blood Neg (Negative) Urine Nitrate Negative (Negative) Urine Bilirubin Neg (Negative) Urine Urobilinogen Norm (Negative) mg/dL Ur Leukocyte Karissa ase Negative (Negative) SARS-CoV-2 Ag (Rap id) Negative (Negative) Group A Strep Rapi d Negative (Negative) Discharge Plan Discharge Patient Disposition: Home Clinical Impression: Upper respiratory infection Condition: Stable Prescriptions: No Action ondansetron HCl [Zofran] 4 mg Tablet 4 mg PO Q6H PRN (Reason: Nausea And Vomiting) RF: 0 acetaminophen [Tylenol Arthritis] 650 mg Tablet Extended Release 650 mg PO PRN PRN (Reason: Pain) RF: 0 Vitamin Plus Low Iron 27 mg iron- 1 mg tablet 1 tab PO DAILY@21 RF: 0 hydroxyzine pamoate 50 mg capsule 50 mg PO BID@0800,2200 RF: 0 omeprazole 40 mg capsule,delayed release(DR/EC) 40 mg PO DAILY@2200 RF: 0 clindamycin phosphate 1 % solution See Rx Instructions .ROUTE .COMPLEX RF: 0 Discharge Orders: Discharge ED (Routine); Ordered 10/24/20 Ordered By: Leopoldo Liz Discharge Diet: Advance as tolerated Discharge Activity: Resume usual activity Patient Instructions: Upper Respiratory Infection (ED), Opioid Safety Activity Restrictions/Additional Instructions: You have an upper respiratory infection. This is likely viral in nature and should go away within a few days. Drink lots of fluids and follow-up with your OB in a couple days. Return to the ER with worsening symptoms. Coding Level of Care Code ED Nursing Home Administrator for Korey Escobedo
[2020-10-24 20:28] VITALS: BP 119/84; PULSE 89; RESP 16; O2SAT 99
== END 2020-10-24 20:28 | disposition home or self-care (01) ==
PROVIDERS: Emergency Provider Family Medicine
DX: O99.512 Diseases of the respiratory system complicating pregnancy, second trimester (principal); Z3A.21 21 weeks gestation of pregnancy; O99.332 Smoking (tobacco) complicating pregnancy, second trimester; Z77.22 Contact with and (suspected) exposure to environmental tobacco smoke (acute) (chronic)
CPT/HCPCS: 80053; 81003; 83605; 85025; 87040; 87081; 87426; 87880; 93005; 96360; 99283; J7030